=== PATIENT | male | born 1960 | race Hispanic/Latino ===

== ENCOUNTER → 2022-07-01 07:51 | Outpatient (CLI) | payer SELFPAY ==
--- NOTE | 2022-07-01 | DI.US.S_ITS ---
PROCEDURE: US SOFT TISSUE HEAD AND NECK INDICATIONS: LOCALIZED ENLARGED LYMPH NODES TECHNIQUE: Real-time scanning was performed of the neck region of interest, with image documentation. COMPARISON: None. FINDINGS: A 1.2 x 0.6 x 1.2 cm reniform hypoechoic structure is present within the superficial soft tissues in the right mandibular region corresponding to the patient indicated area of concern. This finding likely represents a lymph node. An expected echogenic hilum is present. Similar findings/lymph node present in the left mandibular region measuring 0.9 x 0.5 x 0.8 cm. IMPRESSION: A lymph node is present in the superficial soft tissues in the right mandibular region corresponding to the patient indicated palpable finding. The lymph node is not enlarged by size criteria. This is a nonspecific finding, clinical follow-up is recommended, repeat or follow-up imaging can be obtained as clinically indicated. Dictated by: Saud Stevens M.D. on 07/01/2022 at 10:17 Approved by: Saud Stevens M.D. on 07/01/2022 at 10:22
== END ==
PROVIDERS: Referring Provider Physician Assistant Medical; Visit Provider Physician Assistant Medical
DX: R59.0 Localized enlarged lymph nodes (principal)
CPT/HCPCS: 76536